=== PATIENT | female | born 1975 | race Caucasian/White ===

== ENCOUNTER → 2023-10-20 | Outpatient (CLI) | payer OTHER ==
[~2023-10-20] MED LIST: ANTIVERT25 MG PO; ATIVAN0.5 MG PO; BACTRIM DS 8001 TA1 PO; BENTYL20 MG PO; CLINDAMYCIN HC300 MG PO; FLAGYL500 MG PO; FLOMAX0.4 MG PO; LIDEX 0.05% CRE15 GM T; LOMOTIL 0.025 M1 TA1 PO; MEDROL DOSEPAK4 MG PO; MOTRIN800 MG PO; NKHM; PERCOCET 325 MG1 TA2 PO; PREDNISONE20 M1 PO; VICODIN 5/500 505 MG PO; ZITHROMAX TRI-500 M1 PO; ZITHROMAX Z PA250 MG PO; ZOFRAN ODT4 MG SL
[2023-10-20 12:53] LABS: HEMATOCRIT 38.6 % (37.0-47.0); MEAN CELL VOLUME 90.2 fl (81.0-99.0); MEAN CORPUSCULAR HGB 30.1 pg (27.0-31.0); MEAN CORPUSCULAR HGB CONC 33.4 g/dl (33.0-37.0); MEAN PLATELET VOLUME 9.5 fl (9.6-12.3); RED BLOOD COUNT 4.28 10*6/uL (4.10-5.10); RED CELL DISTRI WIDTH 12.4 % (0-14.5); WHITE BLOOD COUNT 4.2 10*3/uL (4.8-10.8)
[2023-10-20 13:30] LABS: ALKALINE PHOSPHATASE 54 U/L (46-116); BUN 13 mg/dl (9-23); CHLORIDE 108 mmol/L (98-107); CHOLESTEROL 203 mg/dL (<200); LDL CHOLESTEROL 122 mg/dL (9-159); POTASSIUM 3.9 mmol/L (3.4-5.1); SGPT/ALT 10 U/L (5-49); TOTAL PROTEIN 6.8 gm/dL (6.0-8.0); TRIGLYCERIDES 121 mg/dl (<150)
[2023-10-20 13:42] LABS: VITAMIN D, 25-HYDROXY 36.5 ng/mL (30-100)
[2023-10-21 08:10] LABS: HBSAG Negative (Negative); HEP B CORE AB, IGM Negative (Negative); HEPATITIS C ANTIBODY Non Reactive (Non Reactive)
== END | disposition home or self-care (01) ==
LOC: LAB 12:05
PROVIDERS: ATTEND Family Medicine
DX: M17.0 Bilateral primary osteoarthritis of knee (principal); M25.561 Pain in right knee; M25.562 Pain in left knee